=== PATIENT | female | born 1995 | race Caucasian/White ===

== ENCOUNTER 2018-12-08 00:09 | Emergency (ER) | payer SELFPAY ==
[~2018-12-08] VITALS: Ht 160 cm; Wt 62.9 kg
--- NOTE | 2018-12-08 00:13 | ED.ADGEN ---
Adult General Chief Complaint Chief Complaint ".. I got these blister down by my vaginal areas.. they hurt so bad... especially with urination... " HPI HPI Patient is a 23 year old female who presents with above hx and complaints blister like lesions and vaginal discharge. Patient first noticed it [place] and found and attributed the irritation to sitting in her bathing suit too long. Patient denies any previous history of STDs. Has had 1 lifetime sex partner. Is on control but does not use any barrier sexual transmission protection. No recent travel. No history immunosuppression. Patient states she did participate in oral sex approximately 1 week prior to the outbreak of the blister lesions. Reportedly partner has no symptoms. Patient does not get outbreaks of yeast with intake of antibiotics. No history of trauma. Patient has tried to use home remedies as such as vaginal douches and [id number] medications. Review of Systems Review of Systems Constitutional: Denies fever or chills [] Eyes: Denies change in visual acuity, redness, or eye pain [] HENT: Denies nasal congestion or sore throat [] Respiratory: Denies cough or shortness of breath [] Cardiovascular: No additional information not addressed in HPI [] GI: Denies abdominal pain, nausea, vomiting, bloody stools or diarrhea [] : Denies dysuria or hematuria []Complaints of labial blisters. Musculoskeletal: Denies back pain or joint pain [] Integument: Complaints of blister like painful lesion on labia and lower vaginal area Neurologic: Denies headache, focal weakness or sensory changes [] Endocrine: Denies polyuria or polydipsia [] All other systems were reviewed and found to be within normal limits, except as documented in this note. Family History Family History Noncontributory Current Medications Current Medications Current Medications Medications (Trade) Dose Ordered Sig/Chandrakant Start Time Stop Time Status Last Admin Dose Admin Acyclovir (Zovirax) 400 mg 1X ONCE 12/08/18 01:15 12/08/18 01:16 DC 12/08/18 01:37 400 MG Azithromycin (Zithromax) 1,000 mg 1X ONCE 12/08/18 01:15 12/08/18 01:16 DC 12/08/18 01:38 1,000 MG Ceftriaxone Sodium 1 gm/ Sodium Chloride 50 ml @ 100 mls/hr 1X ONCE 12/08/18 01:15 12/08/18 01:44 DC 12/08/18 01:40 100 MLS/HR Ceftriaxone Sodium (Rocephin) 1 gm STK-MED ONCE 12/08/18 01:30 12/08/18 01:31 DC Fluconazole (Diflucan) 100 mg 1X ONCE 12/08/18 01:30 12/08/18 01:31 DC 12/08/18 01:37 100 MG Lactated Ringer's 1,000 ml @ 1,000 mls/hr Q1H 12/08/18 01:00 12/08/18 01:59 DC 12/08/18 01:07 1,000 MLS/HR Metronidazole (Flagyl) 2,000 mg 1X ONCE 12/08/18 01:15 12/08/18 01:16 DC 12/08/18 01:38 2,000 MG Ondansetron HCl (Zofran) 8 mg 1X ONCE 12/08/18 01:15 12/08/18 01:16 DC 12/08/18 01:36 8 MG Sodium Chloride 50 ml @ As Directed STK-MED ONCE 12/08/18 01:30 12/08/18 01:31 DC Allergies Allergies Allergies Coded Allergies Type Severity Reaction Last Updated Verified alprazolam Allergy Unknown 12/08/18 Yes pseudoephedrine Allergy Unknown 12/08/18 Yes Physical Exam Physical Exam Constitutional: Well developed, well nourished, moderately acute distress, non- toxic appearance. [] HENT: Normocephalic, atraumatic, bilateral external ears normal, oropharynx moist, no oral exudates, nose normal. [] Eyes: PERRLA, EOMI, conjunctiva normal, no discharge. [] Neck: Normal range of motion, no tenderness, supple, no stridor. [] Cardiovascular:Heart rate regular rhythm, no murmur [] Lungs & Thorax: Bilateral breath sounds clear to auscultation [] Abdomen: Bowel sounds normal, soft, no tenderness, no masses, no pulsatile masses. [] Patient has ulcerating blisters on labia. Mild vaginal discharge or erythema. Mild cervical inflammation. Skin: Warm, dry, no erythema, no rash. [] Back: No tenderness, no CVA tenderness. [] Extremities: No tenderness, no cyanosis, no clubbing, ROM intact, no edema. [] Neurologic: Alert and oriented X 3, normal motor function, normal sensory function, no focal deficits noted. [] Psychologic: Affect anxious judgement normal, mood normal. [] Current Patient Data Vital Signs Vital Signs Date Time Temp Pulse Resp B/P (MAP) Pulse Ox O2 Delivery O2 Flow Rate FiO2 12/08/18 02:28 90 18 122/71 (88) 99 Room Air 12/08/18 00:13 98.4 Lab Results Laboratory Tests Test 12/08/18 00:16 12/08/18 00:40 12/08/18 00:59 12/08/18 01:00 Urine Collection Type Unknown Urine Color Yellow Urine Clarity Clear Urine pH 5.5 Urine Specific [place] >=1.030 Urine Protein Neg (NEG-TRACE) Urine Glucose (UA) Neg mg/dL (NEG) Urine Ketones (Stick) Neg mg/dL (NEG) Urine Blood Small (NEG) Urine Nitrite Neg (NEG) Urine Bilirubin Neg (NEG) Urine Urobilinogen Dipstick 0.2 mg/dL (0.2 mg/dL) Urine Leukocyte Esterase Trace (NEG) Urine RBC 0 /HPF (0-2) Urine WBC Occ /HPF (0-4) Urine Squamous Epithelial Cells Mod /LPF Urine Bacteria 0 /HPF (0-FEW) Urine Opiates Screen Neg (NEG) Urine Methadone Screen Neg (NEG) Urine Barbiturates Neg (NEG) Urine Phencyclidine Screen Neg (NEG) Urine Amphetamine/Methamphetamine Neg (NEG) Urine Benzodiazepines Screen Neg (NEG) Urine Cocaine Screen Neg (NEG) Urine Cannabinoids Screen Neg (NEG) Urine Ethyl Alcohol Neg (NEG) White Blood Count 9.3 x10^3/uL (4.0-11.0) Red Blood Count 4.88 x10^6/uL (3.50-5.40) Hemoglobin 13.7 g/dL (12.0-15.5) Hematocrit 41.3 % (36.0-47.0) Mean Corpuscular Volume 85 fL (79-100) Mean Corpuscular Hemoglobin 28 pg (25-35) Mean Corpuscular Hemoglobin Concent 33 g/dL (31-37) Red Cell Distribution Width 13.4 % (11.5-14.5) Platelet Count 429 x10^3/uL (140-400) H Neutrophils (%) (Auto) 58 % (31-73) Lymphocytes (%) (Auto) 28 % (24-48) Monocytes (%) (Auto) 11 % (0-9) H Eosinophils (%) (Auto) 3 % (0-3) Basophils (%) (Auto) 0 % (0-3) Neutrophils # (Auto) 5.4 x10^3uL (1.8-7.7) Lymphocytes # (Auto) 2.6 x10^3/uL (1.0-4.8) Monocytes # (Auto) 1.0 x10^3/uL (0.0-1.1) Eosinophils # (Auto) 0.3 x10^3/uL (0.0-0.7) Basophils # (Auto) 0.0 x10^3/uL (0.0-0.2) POC Urine HCG, Qualitative hcg negative (Negative) Sodium Level 140 mmol/L (136-145) Potassium Level 3.3 mmol/L (3.5-5.1) L Chloride Level 104 mmol/L (98-107) Carbon Dioxide Level 26 mmol/L (21-32) Anion Gap 10 (6-14) Blood Urea Nitrogen 10 mg/dL (7-20) Creatinine 0.9 mg/dL (0.6-1.0) Estimated GFR (Cockcroft-Gault) 78.3 Glucose Level 101 mg/dL (70-99) H Calcium Level 9.4 mg/dL (8.5-10.1) Total Bilirubin 0.3 mg/dL (0.2-1.0) Direct Bilirubin 0.1 mg/dL (0.0-0.2) Aspartate Amino Transferase (AST) 19 U/L (15-37) Alanine Aminotransferase (ALT) 30 U/L (14-59) Alkaline Phosphatase 51 U/L (46-116) Total Protein 8.0 g/dL (6.4-8.2) Albumin 3.5 g/dL (3.4-5.0) Microbiology 12/08/18 Wet Prep - Final, Complete EKG EKG [] Radiology/Procedures Radiology/Procedures [] Course & Med Decision Making Course & Med Decision Making Pertinent Labs and Imaging studies reviewed. (See chart for details) Lesions are consistent with herpetic or herpes virus. However we will treat for other common STDs. Reportedly a month ago and was checked for STDs as part of her control renewal Meds. We will started course of famciclovir and patient completed a course of doxycycline. Patient to use barrier method for control. Patient warned that antibiotics may prevent effectiveness of control. Must follow-up. [] Final Impression Final Impression 1.. Cervicitis 2. Herpetic lesions of labia[] Dragon Disclaimer Dragon Disclaimer This electronic medical record was generated, in whole or in part, using a voice recognition dictation system. Discharge Summary Visit Information Final Diagnosis Problems Medical Problems: (1) Cervicitis Status: Acute Brief Hospital Course Allergies Allergies Coded Allergies Type Severity Reaction Last Updated Verified alprazolam Allergy Unknown 12/08/18 Yes pseudoephedrine Allergy Unknown 12/08/18 Yes Vital Signs Vital Signs Date Time Temp Pulse Resp B/P (MAP) Pulse Ox O2 Delivery O2 Flow Rate FiO2 12/08/18 02:28 90 18 122/71 (88) 99 Room Air 12/08/18 00:13 98.4 Lab Results Laboratory Tests Test 12/08/18 00:16 12/08/18 00:40 12/08/18 00:59 12/08/18 01:00 Urine Collection Type Unknown Urine Color Yellow Urine Clarity Clear Urine pH 5.5 Urine Specific [place] >=1.030 Urine Protein Neg (NEG-TRACE) Urine Glucose (UA) Neg mg/dL (NEG) Urine Ketones (Stick) Neg mg/dL (NEG) Urine Blood Small (NEG) Urine Nitrite Neg (NEG) Urine Bilirubin Neg (NEG) Urine Urobilinogen Dipstick 0.2 mg/dL (0.2 mg/dL) Urine Leukocyte Esterase Trace (NEG) Urine RBC 0 /HPF (0-2) Urine WBC Occ /HPF (0-4) Urine Squamous Epithelial Cells Mod /LPF Urine Bacteria 0 /HPF (0-FEW) Urine Opiates Screen Neg (NEG) Urine Methadone Screen Neg (NEG) Urine Barbiturates Neg (NEG) Urine Phencyclidine Screen Neg (NEG) Urine Amphetamine/Methamphetamine Neg (NEG) Urine Benzodiazepines Screen Neg (NEG) Urine Cocaine Screen Neg (NEG) Urine Cannabinoids Screen Neg (NEG) Urine Ethyl Alcohol Neg (NEG) White Blood Count 9.3 x10^3/uL (4.0-11.0) Red Blood Count 4.88 x10^6/uL (3.50-5.40) Hemoglobin 13.7 g/dL (12.0-15.5) Hematocrit 41.3 % (36.0-47.0) Mean Corpuscular Volume 85 fL (79-100) Mean Corpuscular Hemoglobin 28 pg (25-35) Mean Corpuscular Hemoglobin Concent 33 g/dL (31-37) Red Cell Distribution Width 13.4 % (11.5-14.5) Platelet Count 429 x10^3/uL (140-400) Neutrophils (%) (Auto) 58 % (31-73) Lymphocytes (%) (Auto) 28 % (24-48) Monocytes (%) (Auto) 11 % (0-9) Eosinophils (%) (Auto) 3 % (0-3) Basophils (%) (Auto) 0 % (0-3) Neutrophils # (Auto) 5.4 x10^3uL (1.8-7.7) Lymphocytes # (Auto) 2.6 x10^3/uL (1.0-4.8) Monocytes # (Auto) 1.0 x10^3/uL (0.0-1.1) Eosinophils # (Auto) 0.3 x10^3/uL (0.0-0.7) Basophils # (Auto) 0.0 x10^3/uL (0.0-0.2) Bedside Urine HCG, Qualitative hcg negative (Negative) Sodium Level 140 mmol/L (136-145) Potassium Level 3.3 mmol/L (3.5-5.1) Chloride Level 104 mmol/L (98-107) Carbon Dioxide Level 26 mmol/L (21-32) Anion Gap 10 (6-14) Blood Urea Nitrogen 10 mg/dL (7-20) Creatinine 0.9 mg/dL (0.6-1.0) Estimated GFR (Cockcroft-Gault) 78.3 Glucose Level 101 mg/dL (70-99) Calcium Level 9.4 mg/dL (8.5-10.1) Total Bilirubin 0.3 mg/dL (0.2-1.0) Direct Bilirubin 0.1 mg/dL (0.0-0.2) Aspartate Amino Transf (AST/SGOT) 19 U/L (15-37) Alanine Aminotransferase (ALT/SGPT) 30 U/L (14-59) Alkaline Phosphatase 51 U/L (46-116) Total Protein 8.0 g/dL (6.4-8.2) Albumin 3.5 g/dL (3.4-5.0) Brief Hospital Course Ms. Boo is a 23 old female who presented with labial blisters- have appearance of Herpetic lesions. Cervicitis. Discharge Information Condition at Discharge: Stable Disposition/Orders: D/C to Home Dischare Medications Current Medications Lactated Ringer's 1,000 ml @ 1,000 mls/hr Q1H IV Last administered on 12/08/18 01:07; Admin Dose 1,000 MLS/HR; Start 12/08/18 at 01:00; Stop 12/08/18 at 01:59; Status DC Ceftriaxone Sodium 1 gm/ Sodium Chloride 50 ml @ 100 mls/hr 1X ONCE IV Last administered on 12/08/18at 01:40; Admin Dose 100 MLS/HR; Start 12/08/18 at 01:15; Stop 12/08/18 at 01:44; Status DC Ondansetron HCl (Zofran) 8 mg 1X ONCE IV Last administered on 12/08/18at 01:36; Admin Dose 8 MG; Start 12/08/18 at 01:15; Stop 12/08/18 at 01:16; Status DC Azithromycin (Zithromax) 1,000 mg 1X ONCE PO Last administered on 12/08/18at 01:38; Admin Dose 1,000 MG; Start 12/08/18 at 01:15; Stop 12/08/18 at 01:16; Status DC Metronidazole (Flagyl) 2,000 mg 1X ONCE PO Last administered on 12/08/18at 01:38; Admin Dose 2,000 MG; Start 12/08/18 at 01:15; Stop 12/08/18 at 01:16; Status DC Acyclovir (Zovirax) 400 mg 1X ONCE PO Last administered on 12/08/18at 01:37; Admin Dose 400 MG; Start 12/08/18 at 01:15; Stop 12/08/18 at 01:16; Status DC Fluconazole (Diflucan) 100 mg 1X ONCE PO Last administered on 12/08/18at 01:37; Admin Dose 100 MG; Start 12/08/18 at 01:30; Stop 12/08/18 at 01:31; Status DC Sodium Chloride 50 ml @ As Directed STK-MED ONCE .ROUTE ; Start 12/08/18 at 01:30; Stop 12/08/18 at 01:31; Status DC Ceftriaxone Sodium (Rocephin) 1 gm STK-MED ONCE .ROUTE ; Start 12/08/18 at 01:30; Stop 12/08/18 at 01:31; Status DC Active Scripts Active Famciclovir 500 Mg Tablet 500 Mg PO TID 7 Days Diflucan (Fluconazole) 100 Mg Tablet 100 Mg PO DAILY 3 Days Doxycycline Hyclate 100 Mg Capsule 100 Mg PO BID 14 Days Dragon Disclaimer This chart was dictated in whole or in part using Voice Recognition software in a busy, high-work load, and often noisy Emergency Department environment. It may contain unintended and wholly unrecognized errors or omissions. VÍCTOR FAN MD Dec 08, 2018 00:13
[2018-12-08] MEDS ORDERED: IV RINGERS SOLUTION,LACTATED 1,000 ML IV SCH (01:00)
[2018-12-08] MEDS ORDERED: FAMC500T PO (01:02)
[2018-12-08] MEDS ORDERED: FLUC100T7 PO (01:02)
[2018-12-08] MEDS ORDERED: DOXY100C2 PO (01:02)
[2018-12-08] MEDS ORDERED: AZITHROMYCIN 250 MG TABLET. PO ONE (01:15)
[2018-12-08] MEDS ORDERED: ONDANSETRON PF 4 MG/2 ML VIAL. IV ONE (01:15)
[2018-12-08] MEDS ORDERED: metroNIDAZOLE 500 MG TABLET PO ONE (01:15)
[2018-12-08] MEDS ORDERED: ACYCLOVIR 200 MG CAPSULE PO ONE (01:15)
[2018-12-08 01:30] LABS: BASO % 0 % (0-3); EOS # 0.3 x10^3/uL (0.0-0.7); EOS % 3 % (0-3); HEMATOCRIT 41.3 % (36.0-47.0); HEMOGLOBIN 13.7 g/dL (12.0-15.5); LYMPH # 2.6 x10^3/uL (1.0-4.8); LYMPH % 28 % (24-48); MEAN CORPUSCULAR HEMOGLOBIN 28 pg (25-35); MEAN CORPUSCULAR HGB CONC 33 g/dL (31-37); MEAN CORPUSCULAR VOLUME 85 fL (79-100); MONO % 11 % (0-9); NEUT # 5.4 x10^3uL (1.8-7.7); NEUT % 58 % (31-73); PLATELET COUNT 429 x10^3/uL (140-400); RED BLOOD COUNT 4.88 x10^6/uL (3.50-5.40); RED CELL DISTRIBUTION WIDTH 13.4 % (11.5-14.5); WHITE BLOOD COUNT 9.3 x10^3/uL (4.0-11.0)
[2018-12-08] MEDS ORDERED: cefTRIAXone SODIUM 1 GM VIAL ONE (01:30)
[2018-12-08] MEDS ORDERED: IV NORMAL SALINE 50ML 50 ML ONE (01:30)
[2018-12-08] MEDS ORDERED: FLUCONAZOLE 100 MG TABLET. PO ONE (01:30)
[2018-12-08 01:41] LABS: BACTERIA,URINE 0 /HPF (0-FEW); BILIRUBIN,URINE NEG (NEG); CLARITY,URINE CLEAR; COLOR,URINE YELLOW; GLUCOSE,URINE NEG (NEG); NITRITE,URINE NEG (NEG); RBC,URINE 0 /HPF (0-2); SQUAMOUS EPITHELIAL CELL,UR MOD /LPF; UROBILINOGEN,URINE 0.2 mg/dL (0.2 mg/dL); WBC,URINE OCC /HPF (0-4)
[2018-12-08 01:47] LABS: AMPHETAMINE/METHAMPHETAMINE NEG (NEG); BARBITURATES NEG (NEG); BENZODIAZEPINES NEG (NEG); CANNABINOIDS NEG (NEG); COCAINE NEG (NEG); METHADONE NEG (NEG); OPIATES NEG (NEG); PHENCYCLIDINE NEG (NEG)
[2018-12-08 01:48] LABS: ALBUMIN 3.5 g/dL (3.4-5.0); CALCIUM 9.4 mg/dL (8.5-10.1); CREATININE 0.9 mg/dL (0.6-1.0); GFR 78.3; TOTAL BILIRUBIN 0.3 mg/dL (0.2-1.0)
[2018-12-08 01:49] LABS: DIRECT BILIRUBIN 0.1 mg/dL (0.0-0.2); POTASSIUM 3.3 mmol/L (3.5-5.1)
[2018-12-08 02:28] VITALS: BP 122/71
[2018-12-11 08:10] LABS: HERPES SIMPLEX TYPE 1 Negative (Negative); HERPES SIMPLEX TYPE 2 Positive (Negative)
[2018-12-11 18:11] LABS: CHLAMYDIA PROBE Negative (Negative)
== END 2018-12-08 02:40 | disposition home or self-care (01) ==
LOC: ER 00:09
DX: N72 Inflammatory disease of cervix uteri (principal); B00.1 Herpesviral vesicular dermatitis; Z88.8 Allergy status to other drugs, medicaments and biological substances
CPT/HCPCS: 36415; 80048; 80076; 80307; 81001; 81025; 85025; 86592; 86705; 86709; 86803; 87086; 87340; 87491; 87529; 87591; 96365; 96375; 99284; J0456; J0696; J2405; J7120; Q0111